=== PATIENT | female | born 1980 ===

== ENCOUNTER 2023-11-15 19:55 | Emergency (ER) | payer MEDICAID ==
[~2023-11-15] VITALS: Ht 157.5 cm; Wt 68.1 kg
[2023-11-15 20:06] VITALS: BP 147/93; PULSE 75; RESP 18; TEMP 98.3; O2SAT 99
== END 2023-11-16 03:02 | disposition left against medical advice (07) ==
LOC: ER 19:56
DX: T23.152A Burn of first degree of left palm, initial encounter (principal); Z53.21 Procedure and treatment not carried out due to patient leaving prior to being seen by health care provider; X08.8XXA Exposure to other specified smoke, fire and flames, initial encounter; Y93.89 Activity, other specified; Y92.89 Other specified places as the place of occurrence of the external cause; Y99.8 Other external cause status
CPT/HCPCS: 99281